=== PATIENT | female | born 1965 | race Caucasian/White ===

== ENCOUNTER 2021-06-10 22:40 | Emergency (ER) | payer OTHER ==
[~2021-06-10] VITALS: Ht 165.1 cm; Wt 124.7 kg
[2021-06-10] MEDS ORDERED: VALSARTAN-HCTZ1 EAC2 PO (22:50)
[2021-06-10] MEDS ORDERED: TOPROL XL25 MG PO (22:50)
[2021-06-10] MEDS ORDERED: VITAMIN C500 M2 PO (22:51)
[2021-06-10] MEDS ORDERED: NOXIFOL-D32500 UNIT PO (22:51)
[2021-06-10] MEDS ORDERED: SUPER THERAVIT1 EACH PO (22:52)
[2021-06-10] MEDS ORDERED: XANAX1 MG PO (22:52)
[2021-06-10] MEDS ORDERED: MELATONIN3 M1 PO (22:53)
[2021-06-10 23:26] LABS: ABSOLUTE BASOPHILS 0.1 thou/uL (0.0-0.2); ABSOLUTE LYMPHOCYTES 2.9 thou/uL (0.8-5.3); ABSOLUTE MONOCYTES 0.6 thou/uL (0.0-1.2); ABSOLUTE NEUTROPHILS 5.2 thou/uL (1.6-8.1); BASOPHILS 1.3 %; EOSINOPHILS 0.4 %; HEMATOCRIT 43.7 % (37.0-47.0); HEMOGLOBIN 14.4 gm/dL (12.0-15.0); LYMPHOCYTES 32.4 %; MCH 29.3 pg (26.0-34.0); MCHC 32.8 g/dL (28.0-37.0); MCV 89.3 fL (80.0-100.0); MONOCYTES 6.8 %; MPV 8.3 fl. (7.2-11.1); NUCLEATED RBCS 0 /100WBC; PLATELET COUNT* 287 thou/uL (150-400); POLYS 59.1 %; RDW-CV 14.8 % (10.5-14.5); WBC 8.9 thou/uL (4.0-11.0)
[2021-06-10 23:29] LABS: CALCIUM 8.9 mg/dL (8.5-10.1); CREATININE 1.1 mg/dL (0.6-1.3); POTASSIUM 3.6 mmol/L (3.5-5.1)
[2021-06-10 23:36] LABS: ALBUMIN 3.6 g/dL (3.4-5.0); TOTAL BILIRUBIN 0.3 mg/dL (<0.1-1.0); TOTAL PROTEIN 7.7 g/dL (6.4-8.2)
[2021-06-11 02:06] VITALS: BP 154/68
--- NOTE | 2021-06-11 08:39 | EKG ---
[place] [address] ELECTROCARDIOGRAM REPORT Name: LINDA HOPE Room: [facility]#: [id number] Admission: 06/10/21 Attend Phys: Discharge: 06/11/21 Date of : 65 Date of Service: 06/10/21 2245 Report #: [id number] THIS REPORT FOR: //name// [facility] ED Test Date: 2021-06-10 Test Time: 22:45:30 Pat Name: LINDA HOPE Department: Room: Gender: F [employer]: MS : 1965 Requested By: Staci Vazquez Order Number: [id number] MD: Rufino Crowe Measurements Intervals [place] Rate: 94 P: -4 FL: 166 QRS: -51 QRSD: 92 T: 27 QT: 348 QTc: 436 Interpretive Statements Sinus rhythm RSR' in V1 or V2, right VCD or RVH Inferior infarct, old No previous ECG available for comparison Electronically Signed On 06-11-2021 8:39:38 CDT by Rufino Crowe [email or web address] <ELECTRONICALLY SIGNED> By: Rufino Crowe MD, FACC 06/11/21 0839 2245 2245 Rufino Crowe MD, FACC /EPI
== END 2021-06-11 02:06 | disposition home or self-care (01) ==
LOC: M.ERS 22:40
PROVIDERS: Personal Emergency Response Attendant
DX: F41.1 Generalized anxiety disorder (principal); F43.0 Acute stress reaction; R07.89 Other chest pain; R11.0 Nausea; F41.9 Anxiety disorder, unspecified; I10 Essential (primary) hypertension; I25.2 Old myocardial infarction; F32.9 Major depressive disorder, single episode, unspecified; E66.9 Obesity, unspecified; Z98.890 Other specified postprocedural states; Z90.89 Acquired absence of other organs; Z68.42 Body mass index [BMI] 45.0-49.9, adult; Z79.899 Other long term (current) drug therapy; Z88.5 Allergy status to narcotic agent; Z88.8 Allergy status to other drugs, medicaments and biological substances